=== PATIENT | female | born 1965 | race Caucasian/White ===

== ENCOUNTER 2018-05-30 21:34 | Emergency (ER) | payer MEDICAID ==
[~2018-05-30] VITALS: Ht 152.4 cm; Wt 70.3 kg
[2018-05-30 21:46] VITALS: Ht 152.4 cm; Wt 70.3 kg
[2018-05-31 01:12] VITALS: BP 162/87
== END 2018-05-31 01:10 | disposition home or self-care (01) ==
LOC: ED 21:34
DX: R07.89 Other chest pain (principal); R05 Cough; R51 Headache
CPT/HCPCS: Q0092

== ENCOUNTER 2018-06-06 19:10 | Inpatient (IN) | payer MEDICAID ==
[~2018-06-06] VITALS: Ht 157.5 cm; Wt 71.0 kg
[2018-06-06 19:13] VITALS: Ht 157.5 cm; Wt 71.0 kg
--- NOTE | 2018-06-06 19:18 | NUR ---
EKG IN PROGRESS.
--- NOTE | 2018-06-06 20:35 | NUR ---
DR BELTRÁN AT BEDSIDE FOR ASSESSMENT.
--- NOTE | 2018-06-06 20:53 | NUR ---
PT IN X-RAY.
[2018-06-06 20:58] LABS: BASOPHIL % 0.8 % (0-2); PLATELET COUNT 209 x10^3mcL (130-400); RED CELL DISTRIBUTION WIDTH 14.3 % (11.5-14.5)
[2018-06-06 21:02] LABS: CALCIUM 7.8 mg/dL (8.5-10.1); CARBON DIOXIDE 29.3 mmol/L (21-32); CHLORIDE SERUM 102 mmol/L (98-107); CREATININE SERUM 0.7 mg/dL (0.6-1.0); GFR1 > 60 mL/min; GLUCOSE SERUM 108 mg/dL (74-106); POTASSIUM SERUM 3.7 mmol/L (3.5-5.1); SODIUM SERUM 138 mmol/L (136-145)
[2018-06-06 21:06] LABS: ALBUMIN 3.3 g/dL (3.4-5.0); ALKALINE PHOSPHATASE 136 U/L (46-116); ALT/SGPT 67 U/L (14-59); AST/SGOT 43 U/L (15-37); BILIRUBIN TOTAL 0.2 mg/dL (0.20-1.00); TOTAL PROTEIN, SERUM 7.4 g/dL (6.4-8.2)
--- NOTE | 2018-06-06 21:06 | NUR ---
RT AT BEDSIDE FOR BREATHING TX.
--- NOTE | 2018-06-06 21:47 | NUR ---
AZRA QUEVEDO, MADE AWARE OF INFLUENZA A POSITIVE TEST RESULTS.
--- NOTE | 2018-06-06 22:07 | NUR ---
MED ADMINISTRATION PENDING BLOOD CULTURES COLLECTION.
--- NOTE | 2018-06-06 22:40 | NUR ---
PT MEDICATED PER ERP'S ORDERS. PT RESTING COMFORTABLY IN BED. PT ADMITTED. PT AWAITING BED ASSIGNMENT.
[2018-06-06 22:43] LABS: T3 TOTAL 0.75 ng/mL
[2018-06-06 23:46] LABS: microscopic required? NO
[2018-06-06 23:54] LABS: CHOLESTEROL/HDL RATIO 4.3; MAGNESIUM 2.2 mg/dL (1.8-2.4); PHOSPHOROUS 2.8 mg/dL (2.5-4.9)
[2018-06-06 23:56] VITALS: BP 145/88
[2018-06-07 00:05] LABS: FREE T4 0.76 ng/dL (0.76-1.46); T4(THYROXINE) 6.8 ug/dL (4.7-13.3)
[2018-06-07 00:28] LABS: UA SPECIFIC GRAVITY 1.015 (1.005-1.035); urine erythrocyte NEGATIVE (NEGATIVE)
[2018-06-07 00:40] LABS: AMPHETAMINE QUAL UR NONE DETECTED (See below)
--- NOTE | 2018-06-07 02:53 | NUR ---
NO CHANGE IN STATUS AT THIS TIME.
--- NOTE | 2018-06-07 03:33 | NUR ---
REPORT GIVEN TO NICOLE ELMORE. OPPORTUNITY GIVEN TO ASK QUESTIONS. PT BEING TRANSPORTED BY RN TO FLOOR (TELE ADMISSION). PT IN STABLE CONDITION AT THIS TIME OF TRANSFER. PT'S CARE COMPLETED BY THIS RN AT THIS TIME.
--- NOTE | 2018-06-07 03:52 | NUR ---
RECEIVED FROM ED,VIA STRETCHER,HAS MASK FROM ED,ACCOMPANIED BY SONS.SETTLED IN 257 A AND MADE COMFORTABLE.MEDSURG PATIENT,NEW ARMBAND APPLIED,ED ARMBAND REMOVED.
--- NOTE | 2018-06-07 04:20 | NUR ---
PATIENT IV SITE RAC,INTACT.EXTENSION TUBING IN PLACE.PATIENT MAINLY ESTONIAN,SON INTERPRETING.WILL LEAVE AFTER INTERVIEW,
[2018-06-07 04:22] VITALS: BP 145/93
--- NOTE | 2018-06-07 04:40 | NUR ---
PATIENT ADMISSION HX AND ASSESSMENT COMPLETED.PATIENT MAINLY LITHUANIAN,SONS HELPED DENTAL FRONT OFFICE ASSISTANT,STEFANIE PATIENT.PUT ON O2 AT 2 LITERS,RT PROTOCOL,AND EVALUATED BY SHAKA.IV SITE RAC,WILL FOLLOW UP ADMIT ORDER.PATIENT PUT ON DROPLET ISOLATION,POSITIVE INFLUENZA A.ALONE IN THE ROOM.MRASA NARES COLLECTED.PATIENT IS COUGHING ON ADMIT,ALSO SEVERE HEADACHE,GIVEN COUGH SYRUP AND NORCO ,SWALLOWS WELL.PATIENT AND FAMILY DECLINE PNEUMO VACCINE AND FLU VACCINE,SAYS IT WILL NOT WORK?CALL LIGHT IN REACH AND INSTRUCTED BY SONS TO CALL NURSE FOR ASSISTANCE,FALL PRECATION,BED ALARM PUT ON ANYWAY.WILL FOLLOW UP ADMIT ORDER.WILL INITIATE PLAN OF CARE.
[2018-06-07 04:44] VITALS: BP 145/93
--- NOTE | 2018-06-07 06:26 | NUR ---
PATIENT NPO UNTIL US ABD IS DONE.WILL ENDORSE TO NEXT SHIFT TO KEEP BREAKFAST AND GIVE TO HER WHEN US IS DONE.
[2018-06-07 06:45] LABS: BASOPHIL % 0.1 % (0-2); CALCIUM 7.5 mg/dL (8.5-10.1); CARBON DIOXIDE 26.6 mmol/L (21-32); CHLORIDE SERUM 102 mmol/L (98-107); CREATININE SERUM 0.8 mg/dL (0.6-1.0); GFR1 > 60 mL/min; GLUCOSE SERUM 116 mg/dL (74-106); MAGNESIUM 2.2 mg/dL (1.8-2.4); PHOSPHOROUS 3.5 mg/dL (2.5-4.9); PLATELET COUNT 200 x10^3mcL (130-400); POTASSIUM SERUM 3.2 mmol/L (3.5-5.1); RED CELL DISTRIBUTION WIDTH 14.2 % (11.5-14.5); SODIUM SERUM 137 mmol/L (136-145)
--- NOTE | 2018-06-07 07:30 | NUR ---
REPORT RCD FROM CATARINA LY. PATIENT ASLEEP, REGULAR RESPS. NS 100 ML/HR TO RAC WITHOUT COMPLICATIONS. BED LOW, CALL LIGHT WITHIN REACH. DROPLET PRECAUTIONS FOR INFLUENZA A IN PLACE. WILL MONITOR.
--- NOTE | 2018-06-07 08:05 | NUR ---
SHIFT ASSESSMENT PERFORMED AND DOCUMENTED. PATIENT SATTING 91% ON ROOM AIR WHILE EATING BREAKFAST, 94% ON 2L NC. PATIENT HAS OCCASIONAL COUGH, NON PRODUCTIVE AT THIS TIME. NO DISTRESS NOTED. 11/02 HEADACHE, WILL MEDICATE PER JUN.
--- NOTE | 2018-06-07 09:15 | NUR ---
NORCO GIVEN PER MAR FOR 11/02 HEADACHE. MEDICATIONS GIVEN PER MAR. NO OTHER NEEDS AT THIS TIME.
[2018-06-07 09:37] VITALS: BP 131/85
--- NOTE | 2018-06-07 10:15 | NUR ---
MD ROUNDS WITH DR. VASQUEZ, MEDICAL TEAM, ATTDG NURSE. PATIENT REPORTS FEELING TOO ILL TO BE DISCHARGED HOME. PLAN FOR PATIENT TO STAY TODAY AND RE-EVALUATE.
--- NOTE | 2018-06-07 13:37 | NUR ---
PATIENT REPORTS HEADACHE HAS RESOLVED, BUT SHE HAS SOME NAUSEA, REQUESTING MEDICATION. ZOFRAN GIVEN PER JUN.
--- NOTE | 2018-06-07 15:47 | NUR ---
PATIENT ASLEEP, REGULAR RESPS. WILL MONITOR.
--- NOTE | 2018-06-07 17:14 | NUR ---
DR. LIAO PAGED AND PAGEGATED REGARDING POTASSIUM 3.2, AWAITING ORDERS.
[2018-06-07 17:41] VITALS: BP 120/75
--- NOTE | 2018-06-07 17:59 | NUR ---
PIETER REPORTS 11/02 HEADACHE, NORCO GIVEN PER JUN. PATIENT DENIES ANY NAUSEA AT THIS TIME. SITTING UP TO DINNER. SON AT BEDSIDE. NO OTHER NEEDS AT THIS TIME.
--- NOTE | 2018-06-07 19:29 | NUR ---
SHIFT REASSESSMENT DONE.PATIENT ALERT AND ORIENTED X 4.SON AT BEDSIDE.PATIENT MAINLY BELARUSIAN,NEEDS ANTICIPATED.ON DROPLET PRECAUTION/ISOLATION.GEN WEAKNESS,CALL LIFGHT FOR ASSISTANCE.REMINDED TO ISE IT WHEN NEEDED HELP.NS AT 100 CC/ HOUR RAC.MEDSURG PATIENT.PNEUMONIA,ON ATB.NO EDEMA NOTED ALL EXT.VOIDING PER BRP.C/O HEADACHE,JUST HAD PAIN PILL.
--- NOTE | 2018-06-07 19:34 | NUR ---
REPORT GIVEN TO CATARINA LY. PATIENT DENIES HEADACHE AT THIS TIME. DROPLET PRECAUTIONS IN PLACE. NS 100 ML/HR TO RAC WITHOUT COMPLICATIONS. BED LOW, CALL LIGHT WITHIN REACH. PATIENT IN NO ACUTE DISTRESS. CARE ENDORSED.
[2018-06-07 21:21] VITALS: BP 113/69
--- NOTE | 2018-06-07 21:22 | NUR ---
PATIENT HAD GIVEN TYLENOL,WANTED NORCO BUT NOT DUE.PM MEDS GIVEN,FAMILY WAS VISITING,VERY SUPPORTIVE OF CARE.
[2018-06-08 04:33] VITALS: BP 118/78
--- NOTE | 2018-06-08 05:51 | NUR ---
PSTIENT GIVEN COUGH SYRUP,SAYS SHE HAS HEADACHE.WILL GIVE NORCO.
--- NOTE | 2018-06-08 05:53 | NUR ---
GIVEN NORCO AT THIS TIME/HEADACHE.SWALLOWS WELL.PREFER NO ICE ON HER WATER.
--- NOTE | 2018-06-08 05:57 | NUR ---
I AND O MEASURED AND RECORDED.IV SITE RAC INTACT AND PATENT.WILL ENDORSE TO NEXT SHIFT.
--- NOTE | 2018-06-08 07:10 | NUR ---
RECIEVED PT FROM NIGHT NURSE. PT IS LAYING DOWN IN BED. RESPIRATIONS EVEN AND UNLABORED ON 2L NC. PT LOOKS TO BE IN NO ACUTE DISTRESS AT THIS TIME. IV FLUIDS INFUSING. IV SITE LOOKS PATENT WITH NO SIGNS OF REDNESS OR SWELLING. WILL CONTINUE TO MONTIOR.
[2018-06-08 10:14] VITALS: BP 126/72
--- NOTE | 2018-06-08 10:15 | NUR ---
PT IS LAYING DOWN IN BED. FAMILY MEMBERS AT BEDSIDE. PT STATES FEELING NAUSEA. IV FLUIDS INFUSING AND IV SITE LOOKS PATENT WITH NO SIGNS OF REDNESS OR SWELLING. WILL MEDICATE PT ACCORDING TO EMAR FOR NAUSEA AND WILL CONTINUE TO MONTIOR.
[2018-06-08] MEDS ORDERED: TAM75 PO (10:51)
[2018-06-08] MEDS ORDERED: TYL325 PO ×2 (10:51→10:56)
[2018-06-08] MEDS ORDERED: LEVAQUIN750 MG PO (10:52)
--- NOTE | 2018-06-08 12:30 | NUR ---
PT LAYING DOWN IN BED. RESPIRATIONS ARE EVEN AND UNLABORED. PT COMPLAINS TO NAUSEA. MEDICATION FOR NAUSEA NOT DUE AT THIS TIME SO EDUCATED PT ON RELAXATION AND POSITIONING WELL PROVIDED THE PT WITH ICE CHIPS TO HELP WITH NAUSEA. PT LOOKS TO BE IN NO ACUTE DISTRESS AT THIS TIME AND WILL CONITNUE TO PILARIOR.
[2018-06-08 12:51] VITALS: BP 126/72
[2018-06-08 16:17] VITALS: BP 133/88
--- NOTE | 2018-06-08 17:30 | NUR ---
PT AWAKE ALERT AND ORIENTED. PT DC HOME ACCOMPANIED BY FAMILY MEMBER. PT WENT TO LOBBY VIA WHEELCHAIR WITH PACK WORKER SUPERVISOR. DC EDUCATION AND PRESCRIPTION EDUCATION PROVIDED TO PT. PT VERBALIZED UNDERSTANDING OF THIS EDUCATION. PT INFORMED OF THE NEED TO [id number] FULL COURSE OF ANTIBIOTIC PRESCRIBED. PT INFORMED OF THE FOLLOW UP APPOINTMENT AND PT VERBALIZED UNDERSTANDING OF THE FOLLOW UP APPOINTMENT. IV REMOVED AND CATHETER FULLY INTACT. TELE MONTIOR REMOVED AND TELE INFORMED. BELONGING WITH PT.
== END 2018-06-08 17:44 | disposition home or self-care (01) | DRG 139 ==
LOC: ED 19:10 → MU 21:58
PROVIDERS: Emergency Medicine; Family Medicine; ADMIT Internal Medicine
DX: J09.X1 Influenza due to identified novel influenza A virus with pneumonia (principal); J15.9 Unspecified bacterial pneumonia; E44.1 Mild protein-calorie malnutrition; I10 Essential (primary) hypertension; R74.0 Nonspecific elevation of levels of transaminase and lactic acid dehydrogenase [LDH]; Z68.29 Body mass index [BMI] 29.0-29.9, adult
CPT/HCPCS: 83880; 84439; 87804; 94150; J0696; J1956; J2405; J3490; J7030; J7620; Q0092

== ENCOUNTER 2018-07-07 17:58 | Emergency (ER) | payer MEDICAID ==
[~2018-07-07] VITALS: Ht 152.4 cm; Wt 69.4 kg
[~2018-07-07 17:58] MED LIST: LEVAQUIN750 MG PO; TAM75 PO; TYL325 PO
[2018-07-07 18:05] VITALS: Ht 152.4 cm; Wt 69.4 kg
[2018-07-07 20:06] VITALS: BP 127/79
== END 2018-07-07 20:06 | disposition home or self-care (01) ==
LOC: ED 17:58
DX: J02.9 Acute pharyngitis, unspecified (principal); B34.9 Viral infection, unspecified; I10 Essential (primary) hypertension
CPT/HCPCS: J0561; J1885

== ENCOUNTER 2018-12-27 21:24 | Emergency (ER) | payer MEDICAID ==
[~2018-12-27] VITALS: Ht 157.5 cm; Wt 66.9 kg
[2018-12-27 21:54] VITALS: Ht 157.5 cm; Wt 66.9 kg
[2018-12-28 00:23] VITALS: BP 146/89
== END 2018-12-28 00:23 | disposition home or self-care (01) ==
LOC: ED 21:24
DX: H10.9 Unspecified conjunctivitis (principal); I10 Essential (primary) hypertension

== ENCOUNTER 2019-06-30 18:37 | Emergency (ER) | payer MEDICAID ==
[~2019-06-30] VITALS: Ht 152.4 cm; Wt 69.9 kg
[2019-06-30 18:54] VITALS: Ht 152.4 cm; Wt 69.9 kg
[2019-06-30 20:53] LABS: CALCIUM 8.8 mg/dL (8.5-10.1); CARBON DIOXIDE 29.7 mmol/L (21-32); CHLORIDE SERUM 107 mmol/L (98-107); CREATININE SERUM 0.7 mg/dL (0.6-1.0); GFR1 > 60 mL/min; GLUCOSE SERUM 111 mg/dL (74-106); POTASSIUM SERUM 3.6 mmol/L (3.5-5.1); SODIUM SERUM 140 mmol/L (136-145)
[2019-06-30 20:55] LABS: BASOPHIL % 0.3 % (0-2); PLATELET COUNT 223 x10^3mcL (130-400); RED CELL DISTRIBUTION WIDTH 14.6 % (11.5-14.5)
[2019-06-30 20:57] LABS: ALBUMIN 3.5 g/dL (3.4-5.0); ALKALINE PHOSPHATASE 148 U/L (46-116); ALT/SGPT 52 U/L (14-59); AST/SGOT 34 U/L (15-37); BILIRUBIN TOTAL 0.29 mg/dL (0.20-1.00); LIPASE 156 IU/L (73-393); TOTAL PROTEIN, SERUM 7.4 g/dL (6.4-8.2)
[2019-06-30 22:22] LABS: microscopic required? YES; urine erythrocyte NEGATIVE (NEGATIVE)
[2019-07-01 00:38] VITALS: BP 148/88
== END 2019-07-01 00:38 | disposition home or self-care (01) ==
LOC: ED 18:37
PROVIDERS: Emergency Medicine
DX: N81.89 Other female genital prolapse (principal)
CPT/HCPCS: 36415

== ENCOUNTER 2019-09-20 11:51 | Emergency (ER) | payer MEDICAID ==
[~2019-09-20] VITALS: Ht 157.5 cm; Wt 69.4 kg
[2019-09-20 11:59] VITALS: Ht 157.5 cm; Wt 69.4 kg
[2019-09-20 12:57] LABS: BASOPHIL % 0.6 % (0-2); PLATELET COUNT 243 x10^3mcL (130-400); RED CELL DISTRIBUTION WIDTH 14.4 % (11.5-14.5)
[2019-09-20 13:16] LABS: ALBUMIN 3.7 g/dL (3.4-5.0); ALKALINE PHOSPHATASE 96 U/L (46-116); ALT/SGPT 38 U/L (14-59); AST/SGOT 23 U/L (15-37); BILIRUBIN TOTAL 0.7 mg/dL (0.20-1.00); CHLORIDE SERUM 105 mmol/L (98-107); CREATININE SERUM 0.7 mg/dL (0.6-1.0); GFR1 > 60 mL/min; GLUCOSE SERUM 98 mg/dL (74-106); LIPASE 130 IU/L (73-393); POTASSIUM SERUM 3.6 mmol/L (3.5-5.1); SODIUM SERUM 142 mmol/L (136-145); TOTAL PROTEIN, SERUM 7.5 g/dL (6.4-8.2)
[2019-09-20 13:26] LABS: CALCIUM 8.8 mg/dL (8.5-10.1)
[2019-09-20 14:11] VITALS: BP 177/93
== END 2019-09-20 14:11 | disposition home or self-care (01) ==
LOC: ED 11:51
PROVIDERS: Emergency Medicine
DX: G44.209 Tension-type headache, unspecified, not intractable (principal); R42 Dizziness and giddiness; R11.2 Nausea with vomiting, unspecified; I10 Essential (primary) hypertension
CPT/HCPCS: 36415; 82962; J1885; J8597; Q0162

== ENCOUNTER 2019-10-27 19:28 | Emergency (ER) | payer MEDICAID ==
[~2019-10-27] VITALS: Ht 152.4 cm; Wt 72.1 kg
[2019-10-27 19:34] VITALS: Ht 152.4 cm; Wt 72.1 kg
[2019-10-27 20:14] LABS: BASOPHIL % 0.5 % (0-2); PLATELET COUNT 231 x10^3mcL (130-400); RED CELL DISTRIBUTION WIDTH 14.4 % (11.5-14.5)
[2019-10-27 20:30] LABS: CALCIUM 8.7 mg/dL (8.5-10.1); CARBON DIOXIDE 26.7 mmol/L (21-32); CHLORIDE SERUM 103 mmol/L (98-107); CREATININE SERUM 0.8 mg/dL (0.6-1.0); GFR1 > 60 mL/min; GLUCOSE SERUM 115 mg/dL (74-106); POTASSIUM SERUM 3.4 mmol/L (3.5-5.1); SODIUM SERUM 140 mmol/L (136-145)
[2019-10-27 20:34] LABS: ALBUMIN 3.5 g/dL (3.4-5.0); ALKALINE PHOSPHATASE 129 U/L (46-116); ALT/SGPT 42 U/L (14-59); AST/SGOT 24 U/L (15-37); BILIRUBIN TOTAL 0.48 mg/dL (0.20-1.00); LIPASE 127 IU/L (73-393); TOTAL PROTEIN, SERUM 7.4 g/dL (6.4-8.2)
[2019-10-27 20:40] LABS: microscopic required? YES; urine erythrocyte TRACE (NEGATIVE)
[2019-10-27 22:20] VITALS: BP 141/93
== END 2019-10-27 22:20 | disposition home or self-care (01) ==
LOC: ED 19:28
PROVIDERS: Emergency Medicine
DX: K57.32 Diverticulitis of large intestine without perforation or abscess without bleeding (principal); I10 Essential (primary) hypertension
CPT/HCPCS: J1885

== ENCOUNTER 2019-10-30 12:41 | Emergency (ER) | payer MEDICAID ==
[~2019-10-30] VITALS: Ht 154.9 cm; Wt 65.8 kg
[2019-10-30 13:36] VITALS: Ht 154.9 cm; Wt 65.8 kg
[2019-10-30 17:10] VITALS: BP 143/83
== END 2019-10-30 17:10 | disposition home or self-care (01) ==
LOC: ED 12:41
DX: R51 Headache (principal); R11.0 Nausea; I10 Essential (primary) hypertension; Z20.828 Contact with and (suspected) exposure to other viral communicable diseases
CPT/HCPCS: J2765; J3030; U0003-CS